=== PATIENT | female | born 1980 | race Caucasian/White ===

== ENCOUNTER 2017-02-14 19:16 | Inpatient (IN) | payer BC ==
[~2017-02-14] VITALS: Ht 170.2 cm; Wt 79.4 kg
--- NOTE | ~2017-02-14 | OR ---
PATIENT'S NAME: ESTELLE SANCHEZ [facility] AGE: 37 Y [address] ROOM: [place] [address] LOCATION: [facility] ADMIT DATE: 02/14/2017 OR/Procedure Report DISCHARGE DATE: FAMILY PHYSICIAN: PHYSICIAN, NO ATTENDING PHYSICIAN: Onelia Garcia SURGEON: Radha Colon MD EDUCATIONAL ASSISTANT TEACHER: None. DATE OF PROCEDURE: 02/14/2017 PRE-DELIVERY DIAGNOSES: 1. Intrauterine at 39 weeks and 2 days. 2. Active labor with spontaneous rupture of membranes. 3. Advanced maternal age. POST-DELIVERY DIAGNOSES: 1. Intrauterine at 39 weeks and 2 days. 2. Active labor with spontaneous rupture of membranes. 3. Advanced maternal age. ANTIBIOTICS: None indicated. ESTIMATED BLOOD LOSS: 300 mL. FINDINGS: A viable female infant. Weight was pending at time of this dictation with score of 8 and 9. Intact placenta with three-vessel cord. Second-degree perineal laceration was repaired and hemostatic. Normal appearing cervix and vagina. ANESTHESIA: Local with lidocaine. SPECIMENS: Cord blood. Placenta was not sent for pathology. COMPLICATIONS: None. DISPOSITION: The patient and remained in room. INDICATIONS FOR PROCEDURE: The patient is a 37-year-old G5, P2-0-2-2, who presented at 39 weeks and 2 days with complaints of loss of fluid. The patient was 7 cm dilated on presentation, and rupture of membranes was confirmed. The patient failed to progress past 7 over the course of approximately two hours, and was started on Pitocin for augmentation. She then rapidly progressed to complete, and began expulsive efforts. DESCRIPTION OF PROCEDURE: The patient was placed in dorsal lithotomy position with feet in stirrups. With maternal expulsive efforts, she delivered the PATIENT'S NAME: ESTELLE SANCHEZ [facility] AGE: 37 Y [address] ROOM: [place] [address] LOCATION: [facility] ADMIT DATE: 02/14/2017 OR/Procedure Report DISCHARGE DATE: FAMILY PHYSICIAN: PHYSICIAN, NO ATTENDING PHYSICIAN: Onelia Garcia head. head was allowed to restitute. With the assistance of maternal expulsive efforts as well as gentle downward and then upward traction, the shoulders were delivered, followed by the remainder of the body. was placed on the mother's chest. Cord was clamped and cut. IV Pitocin was started per protocol. Cord blood was obtained. Gentle downward traction was placed on the umbilical cord, and the placenta was delivered spontaneously intact. Cervix, vagina, and perineum were inspected for lacerations with the findings of a second-degree perineal laceration. The area was anesthetized with 1% lidocaine. It was then repaired in a typical fashion using 2-0 Vicryl and the repair appeared hemostatic. Needle, sponge, and instrument counts were noted to be correct x2. The patient and the remained in her room. MD MICHAEL MICHAELS/ignacia /[id number] d: 02/15/17 0313 t: 02/19/17 0429, OPERATIVE SUMMARY
[~2017-02-14 19:16] MED LIST: MOTRIN800 MG PO; PERCOCET 5-3251 EACH PO; PRENATAL 1+1)(P1 TAB PO
[2017-02-14 20:00] LABS: BASOPHIL % 0.4 %; EOSINOPHIL # 0.1 K/uL (0.0-0.5); EOSINOPHIL % 0.6 %; HEMATOCRIT 34.3 % (33.0-46.0); HEMOGLOBIN 11.7 g/dL (11.0-15.0); IMMATURE GRANULOCYTE # 0.1 K/uL (0.0-0.3); IMMATURE GRANULOCYTE % 0.8 %; LYMPHOCYTE # 2.7 K/uL (0.8-4.0); LYMPHOCYTE % 29.8 %; MCH 29.2 pg (27.0-34.0); MCHC 34.1 gm/dL (32.0-36.5); MCV 85.5 fl (83.0-98.0); MONOCYTE # 0.8 K/uL (0.0-1.0); MONOCYTE % 8.3 %; MPV 9.6 fl (9.4-12.4); NEUTROPHIL # (ANC) 5.5 K/uL (1.8-7.8); NEUTROPHIL % 60.1 %; NRBC % 0 /100WBC (0-0.00); PLATELET COUNT 285 K/uL (150-450); RBC 4.01 M/uL (3.50-5.50); WBC 9.1 K/uL (4.0-11.0)
[2017-02-14] MEDS ORDERED: PRENATAL 1+1)(P1 TAB PO (20:00)
--- NOTE | 2017-02-15 04:57 | NUR ---
Last VS: T:98.0 P:73 R:16 BP: 110/59 Pain rating: . Last pain med: PERCOCET Medicated at:0405 Effective: Yes Breasts: SOFT, Nipples: ERRECT Fundus:FIRM Lochia: RHUBRA Epis/Perineum:TENDER Voiding well: YES Significant event: V/S STABLE. USING DERMOPLAST SPRAY WITH CHERELLE CARES. FLOW IS SMALL.
[2017-02-15 06:18] LABS: BASOPHIL % 0.2 %; EOSINOPHIL % 0.2 %; HEMATOCRIT 30.7 % (33.0-46.0); HEMOGLOBIN 10.4 g/dL (11.0-15.0); IMMATURE GRANULOCYTE # 0.1 K/uL (0.0-0.3); IMMATURE GRANULOCYTE % 0.5 %; LYMPHOCYTE # 1.8 K/uL (0.8-4.0); LYMPHOCYTE % 18.1 %; MCH 29.1 pg (27.0-34.0); MCHC 33.9 gm/dL (32.0-36.5); MONOCYTE # 0.7 K/uL (0.0-1.0); MONOCYTE % 7.1 %; MPV 9.8 fl (9.4-12.4); NEUTROPHIL # (ANC) 7.2 K/uL (1.8-7.8); NEUTROPHIL % 73.9 %; NRBC % 0 /100WBC (0-0.00); RBC 3.57 M/uL (3.50-5.50); RDW-CV 13.7 % (11.9-14.6); WBC 9.7 K/uL (4.0-11.0)
[2017-02-15 06:19] LABS: PLATELET COUNT 220 K/uL (150-450)
--- NOTE | 2017-02-15 16:48 | NUR ---
Significant Event: Follow up: VSS, hbg 10.4, from 11.7, Sl dc'd. Reports voiding well, no clots. Medicated with 1) percocet @ 1558, with effectiveness. Plans home tomorrow.
--- NOTE | 2017-02-16 04:31 | NUR ---
VSS, fundus firm, lochia small, emptying bladder without difficulty. used jacuzzi last night, had a motrin and percocet around 2245, with good results. Home today.
[2017-02-16] MEDS ORDERED: SURFAK240 MG PO (10:02)
[2017-02-16] MEDS ORDERED: NORCO 5-325 TA1 EACH PO (10:02)
== END 2017-02-16 12:04 | disposition disaster alternative care site (69) | DRG 775 ==
LOC: GOBS 19:16 → GOBM 19:16 → GOBS 19:17 → GOBM 02-17 15:05
PROVIDERS: Obstetrics & Gynecology; ADMIT Obstetrics & Gynecology
DX: O62.1 Secondary uterine inertia (principal); O70.1 Second degree perineal laceration during delivery; Z3A.39 39 weeks gestation of pregnancy; Z37.0 Single live birth
CPT/HCPCS: J2001; J7120